=== PATIENT | male | born 1945 | race Caucasian/White ===

== ENCOUNTER 2016-07-07 12:06 | Emergency (ER) | payer OTHER, MEDICAID ==
[2016-07-07 13:39] LABS: BASOPHIL % 0.1 % (0-2); PLATELET COUNT 157 x10^3mcL (130-400); RED CELL DISTRIBUTION WIDTH 13.7 % (11.5-14.5)
[2016-07-07] MEDS ORDERED: SIMVASTATIN40 M1 PO (13:39)
[2016-07-07] MEDS ORDERED: TAMSULOSIN HYD0.4 M1 PO (13:40)
[2016-07-07] MEDS ORDERED: PROAIR HFA8.5 GM (13:40)
[2016-07-07] MEDS ORDERED: ASPIR 8181 MG PO (13:41)
[2016-07-07] MEDS ORDERED: FINASTERIDE5 M1 PO (13:41)
[2016-07-07] MEDS ORDERED: VERAMYST27.5 MCG/1 (13:42)
[2016-07-07] MEDS ORDERED: AZELASTINE HYDRO6 ML (13:42)
[2016-07-07 13:47] LABS: CARBON DIOXIDE 28.8 mmol/L (21-32); CHLORIDE SERUM 106 mmol/L (98-107); CREATININE SERUM 0.9 mg/dL (0.7-1.3); GLUCOSE SERUM 122 mg/dL (74-106); POTASSIUM SERUM 4.1 mmol/L (3.5-5.1); SODIUM SERUM 140 mmol/L (136-145)
[2016-07-07 13:54] LABS: ALBUMIN 3.6 g/dL (3.4-5.0); ALKALINE PHOSPHATASE 93 U/L (46-116); ALT/SGPT 34 U/L (16-63); AST/SGOT 20 U/L (15-37); BILIRUBIN TOTAL 0.6 mg/dL (0.20-1.00); TOTAL PROTEIN, SERUM 6.7 g/dL (6.4-8.2)
[2016-07-07 16:02] VITALS: BP 138/76
== END 2016-07-07 16:02 | disposition home or self-care (01) ==
LOC: ED 12:06
PROVIDERS: Emergency Medicine
DX: S20.212A Contusion of left front wall of thorax, initial encounter (principal); R51 Headache; I10 Essential (primary) hypertension; E78.00 Pure hypercholesterolemia, unspecified; W18.30XA Fall on same level, unspecified, initial encounter; Y93.89 Activity, other specified; Y99.8 Other external cause status; Y92.89 Other specified places as the place of occurrence of the external cause
CPT/HCPCS: 83880; J0780; J1885

== ENCOUNTER 2020-01-25 16:43 | Emergency (ER) | payer OTHER, MEDICAID ==
[~2020-01-25] VITALS: Ht 167.6 cm; Wt 80.7 kg
[~2020-01-25 16:43] MED LIST: ASPIR 8181 MG PO; AZELASTINE HYDRO6 ML; FINASTERIDE5 M1 PO; PROAIR HFA8.5 GM; SIMVASTATIN40 M1 PO; TAMSULOSIN HYD0.4 M1 PO; VERAMYST27.5 MCG/1
[2020-01-25 17:03] VITALS: Ht 167.6 cm; Wt 80.7 kg
[2020-01-25 17:55] LABS: BASOPHIL % 0.4 % (0.2-1.5); PLATELET COUNT 220 x10^3mcL (152-348)
[2020-01-25 18:00] LABS: rbc morphology (normal/abnorm) NORMAL (NORMAL)
[2020-01-25 18:21] LABS: CALCIUM 9.4 mg/dL (8.5-10.1); CARBON DIOXIDE 28.4 mmol/L (21-32); CHLORIDE SERUM 102 mmol/L (98-107); GLUCOSE SERUM 103 mg/dL (74-106); POTASSIUM SERUM 4.4 mmol/L (3.5-5.1); SODIUM SERUM 137 mmol/L (136-145)
[2020-01-25 18:26] LABS: ALBUMIN 3.6 g/dL (3.4-5.0); ALKALINE PHOSPHATASE 75 U/L (46-116); ALT/SGPT 21 U/L (16-63); AST/SGOT 18 U/L (15-37); BILIRUBIN TOTAL 0.8 mg/dL (0.20-1.00); LIPASE 91 IU/L (73-393); TOTAL PROTEIN, SERUM 7.1 g/dL (6.4-8.2)
[2020-01-25 21:47] LABS: UA SPECIFIC GRAVITY >=1.030 (1.005-1.035); microscopic required? YES; urine erythrocyte 2+ (NEGATIVE)
[2020-01-26 00:28] VITALS: BP 133/69
== END 2020-01-25 22:00 | disposition home or self-care (01) ==
LOC: ED 16:43
PROVIDERS: Emergency Medicine; Student in an Organized Health Care Education/Training Program
DX: K57.32 Diverticulitis of large intestine without perforation or abscess without bleeding (principal); K80.20 Calculus of gallbladder without cholecystitis without obstruction; I10 Essential (primary) hypertension; E78.00 Pure hypercholesterolemia, unspecified
CPT/HCPCS: J1885; J2543; J3490